=== PATIENT | female | born 1985 | race Caucasian/White ===

== ENCOUNTER 2017-12-02 12:06 | Inpatient (IN) | payer BC ==
[~2017-12-02] VITALS: Ht 165.1 cm; Wt 58.2 kg
[2017-12-02 13:42] VITALS: BP 114/77
[2017-12-02 13:43] VITALS: BP 114/77
[2017-12-02 14:11] LABS: BASO % 1 % (0-3); EOS # 0.1 x10^3/uL (0.0-0.7); EOS % 2 % (0-3); HEMATOCRIT 38.1 % (36.0-47.0); HEMOGLOBIN 12.8 g/dL (12.0-15.5); LYMPH # 1.2 x10^3/uL (1.0-4.8); LYMPH % 36 % (24-48); MEAN CORPUSCULAR HEMOGLOBIN 30 pg (25-35); MEAN CORPUSCULAR HGB CONC 34 g/dL (31-37); MEAN CORPUSCULAR VOLUME 89 fL (79-100); MONO # 0.5 x10^3/uL (0.0-1.1); MONO % 14 % (0-9); NEUT # 1.6 x10^3uL (1.8-7.7); NEUT % 47 % (31-73); PLATELET COUNT 248 x10^3/uL (140-400); RED BLOOD COUNT 4.29 x10^6/uL (3.50-5.40); RED CELL DISTRIBUTION WIDTH 12.8 % (11.5-14.5); WHITE BLOOD COUNT 3.4 x10^3/uL (4.0-11.0)
[2017-12-02] MEDS ORDERED: IOHEXOL 240 MG/ML 50ML VIAL. ONE (14:19)
[2017-12-02 14:29] LABS: ALBUMIN/GLOBULIN RATIO 0.7 (1.0-1.7); CALCIUM 9.1 mg/dL (8.5-10.1); CREATININE 0.7 mg/dL (0.6-1.0); GFR 96.4; POTASSIUM 3.3 mmol/L (3.5-5.1); TOTAL BILIRUBIN 0.3 mg/dL (0.2-1.0); TOTAL PROTEIN 7.1 g/dL (6.4-8.2)
[2017-12-02] MEDS ORDERED: BACL10TA PO (14:51)
[2017-12-02] MEDS ORDERED: TRAM50TA PO (14:51)
[2017-12-02] MEDS ORDERED: NAPR-695 PO (14:51)
[2017-12-02] MEDS ORDERED: GABA-586 PO (14:51)
[2017-12-02] MEDS ORDERED: IOHEXOL 300 MG/ML 75 ML VIAL. IV ONE (15:00)
[2017-12-02 15:15] LABS: SEDIMENTATION RATE 56 (0-25)
[2017-12-02] MEDS ORDERED: NAPROXEN 375 MG TABLET PO PRN (15:15)
[2017-12-02] MEDS: AA 3%/ELECTROLYTE-TPN SOLN/GLY 1,000 ML IV SCH (15:18)
[2017-12-02 16:01] VITALS: BP 112/72
--- NOTE | 2017-12-02 16:11 | RAD ---
CT abdomen and pelvis with contrast History: Diarrhea for 4 days, fever at night, diagnosed with colitis Technique: After the administration of oral and intravenous contrast, CT imaging was performed of the abdomen and pelvis. Multiplanar images are reviewed. Exposure: One or more of the following individualized dose reduction techniques were utilized for this examination: 1. Automated exposure control 2. Adjustment of the mA and/or kV according to patient size 3. Use of iterative reconstruction technique. Contrast: 75 cc Omnipaque 300 Comparison: None Findings: There is no significant abnormality of the visualized lung bases. There is no significant abnormality of the spleen, pancreas, adrenal glands. There is a focus of decreased density of the left lobe of the liver near the fissure of the ligamentum up to 3.2 cm longitudinal by 1.6 cm transverse by 1.3 cm AP. There is elongation right lobe of the liver. Both kidneys enhance without hydronephrosis. Gallbladder is present without obvious intraluminal abnormality by CT. Main portal vein and superior mesenteric vein are somewhat prominent in caliber, although appear adequately opacified with contrast. The colon is not opacified with oral contrast during the exam for accurate evaluation, also limited evaluation due to the paucity of intraabdominal and intrapelvic fat. There appears to be wall thickening of the descending colon and splenic flexure, as well as likely segments of more proximal transverse colon and ascending colon. Small bowel is not dilated. No free air is identified. There is a small quantity of nonspecific dependent free fluid in the pelvis. Clips in the right pelvis are likely due to previous appendectomy. The bladder has a normal configuration, mild distention. Impression: 1. Accurate evaluation of the colon is again limited without significant oral contrast opacification during exam, likely colonic wall thickening which may be seen with colitis. There is a small quantity of nonspecific free fluid in the pelvis. Small bowel is not significantly dilated. 2.There is a focus of decreased density of the left lobe of the liver near the fissure of the ligamentum teres in a common location for site of decreased perfusion or more focal fatty infiltration. Electronically signed by: Krish Argueta MD (12/02/2017 4:08 PM) [id number]
[2017-12-02] MEDS: GABAPENTIN 300 MG CAPSULE. PO SCH ×2 (16:31→19:52)
[2017-12-02] MEDS: BACLOFEN 10 MG TABLET PO SCH ×2 (16:31→19:52)
[2017-12-02] MEDS: traMADol 50 MG TABLET PO PRN ×2 (16:32→21:40)
[2017-12-02 19:31] VITALS: BP 111/74
[2017-12-02] MEDS: ONDANSETRON PF 4 MG/2 ML VIAL. IV PRN (19:50)
[2017-12-02] MEDS: MORPHINE SULFATE 4 MG/ML DISP.SYRIN. IV PRN ×2 (19:51→23:35)
[2017-12-02 21:25] LABS: BACTERIA,URINE 0 /HPF (0-FEW); BILIRUBIN,URINE NEG (NEG); CLARITY,URINE CLEAR; COLOR,URINE STRAW; GLUCOSE,URINE NEG (NEG); NITRITE,URINE NEG (NEG); RBC,URINE OCC /HPF (0-2); UROBILINOGEN,URINE 0.2 mg/dL (0.2 mg/dL); WBC,URINE 0 /HPF (0-4)
[2017-12-02 21:26] LABS: SQUAMOUS EPITHELIAL CELL,UR OCC /LPF
[2017-12-02 23:51] VITALS: BP_SYST 120; BP_SYST 152; BP_DIAS 74; BP_DIAS 85
[2017-12-03] MEDS: ONDANSETRON PF 4 MG/2 ML VIAL. IV PRN (03:26)
[2017-12-03] MEDS: MORPHINE SULFATE 4 MG/ML DISP.SYRIN. IV PRN ×2 (03:27→08:49)
[2017-12-03] MEDS: AA 3%/ELECTROLYTE-TPN SOLN/GLY 1,000 ML IV SCH ×2 (03:28→19:56)
[2017-12-03 05:02] VITALS: BP 116/66
[2017-12-03 08:01] LABS: BASO % 0 % (0-3); EOS # 0.1 x10^3/uL (0.0-0.7); EOS % 3 % (0-3); HEMATOCRIT 35.5 % (36.0-47.0); HEMOGLOBIN 11.9 g/dL (12.0-15.5); LYMPH # 1.2 x10^3/uL (1.0-4.8); LYMPH % 34 % (24-48); MEAN CORPUSCULAR HEMOGLOBIN 29 pg (25-35); MEAN CORPUSCULAR HGB CONC 34 g/dL (31-37); MEAN CORPUSCULAR VOLUME 88 fL (79-100); MONO # 0.6 x10^3/uL (0.0-1.1); MONO % 16 % (0-9); NEUT # 1.7 x10^3uL (1.8-7.7); NEUT % 47 % (31-73); PLATELET COUNT 239 x10^3/uL (140-400); RED BLOOD COUNT 4.06 x10^6/uL (3.50-5.40); WHITE BLOOD COUNT 3.7 x10^3/uL (4.0-11.0)
[2017-12-03 08:21] LABS: ALBUMIN 2.3 g/dL (3.4-5.0); ALBUMIN/GLOBULIN RATIO 0.6 (1.0-1.7); CALCIUM 8.4 mg/dL (8.5-10.1); CREATININE 0.5 mg/dL (0.6-1.0); GFR 142.1; MAGNESIUM 1.9 mg/dL (1.8-2.4); POTASSIUM 3.8 mmol/L (3.5-5.1); TOTAL BILIRUBIN 0.2 mg/dL (0.2-1.0); TOTAL PROTEIN 6.2 g/dL (6.4-8.2)
[2017-12-03] MEDS: GABAPENTIN 300 MG CAPSULE. PO SCH ×3 (08:49→19:55)
[2017-12-03] MEDS: BACLOFEN 10 MG TABLET PO SCH ×3 (08:49→19:55)
[2017-12-03 11:44] VITALS: BP 112/69
[2017-12-03] MEDS: HYDROmorphone PF 2 MG/ML VIAL IV PRN ×3 (12:03→21:36)
[2017-12-03] MEDS: fentaNYL 12MCG/HR 1 PATCH PATCH TD SCH (14:25)
[2017-12-03 15:48] VITALS: BP 115/70
[2017-12-03 19:54] VITALS: BP 117/73
[2017-12-03] MEDS: MELATONIN 3 MG TABLET PO PRN (19:56)
[2017-12-03 22:54] VITALS: BP 106/59
--- NOTE | 2017-12-04 00:09 | PN ---
DATE: SUBJECTIVE: The patient diagnosed with lymphocytic microcytic colitis, having frequent bowel movements. CT scan demonstrates a nonspecific free fluid in the pelvis as well as colonic wall thickening per CT scan, previous diagnosis by Dr. Avilez with colonoscopy showing the lymphocytic colitis. The patient says she is doing a little better, better hydrated of course. Continue to monitor carefully. Still needs good support. Albumin down to 2.3. Have the performance instructor review the patient. OBJECTIVE: VITAL SIGNS: Blood pressure 112/70, respiratory rate 20, pulse 64, afebrile. HEENT: The patient's head was atraumatic, normocephalic. Eyes: PERRLA without jaundice. Mouth and throat were normal. NECK: Supple. LUNGS: Diminished, but clear. CARDIOVASCULAR: Regular sinus rhythm. ABDOMEN: Soft, diffuse tenderness throughout, positive bowel sounds. No hepatosplenomegaly. EXTREMITIES: No clubbing, cyanosis or edema. NEUROLOGIC: Intact. IMPRESSION: Lymphocytic microcytic colitis with dehydration, moderate to severe protein malnutrition. PLAN: Continue with IV, was started on budesonide fluids and make further assessment. ____ Dr. Avilez to make further evaluation on him as indicated. CHICHI GUNN MD DR: SONNY/maroc JOB#: [id number] / [id number]
[2017-12-04] MEDS: HYDROmorphone PF 2 MG/ML VIAL IV PRN ×5 (02:36→20:29)
[2017-12-04 02:39] VITALS: BP 101/62
[2017-12-04 05:55] VITALS: BP 105/70
[2017-12-04] MEDS: AA 3%/ELECTROLYTE-TPN SOLN/GLY 1,000 ML IV SCH ×2 (08:50→20:27)
[2017-12-04] MEDS: GABAPENTIN 300 MG CAPSULE. PO SCH ×3 (08:53→20:27)
[2017-12-04] MEDS: BACLOFEN 10 MG TABLET PO SCH ×3 (08:53→20:27)
[2017-12-04] MEDS: BUDESONIDE 3 MG CAP.ER.24H. PO SCH (10:09)
[2017-12-04 12:34] VITALS: BP 107/64
[2017-12-04 15:59] VITALS: BP 108/68
[2017-12-04 17:09] LABS: ANA INTERP Negative (.)
[2017-12-04 20:19] VITALS: BP 130/81
[2017-12-04] MEDS: MELATONIN 3 MG TABLET PO PRN (20:27)
--- NOTE | 2017-12-05 00:03 | PN ---
DATE: 12/04/2017 SUBJECTIVE: A 32-year-old female in with microcytic lymphocytic colitis, dehydration and severe protein malnutrition, doing a little bit better. Diarrhea has pretty much slowed down. We will have to go ahead and continue with therapy, budesonide and make further evaluation on her. Her hemoglobin has dropped to the ____. Sed rate was elevated at 35, B12 levels were good. Her prealbumin level was extremely low at 9.1, which shows the degree of malnutrition therapy. Her ____ in for further evaluation for a dietary consult and make further evaluation on her. OBJECTIVE: VITAL SIGNS: Otherwise, blood pressure 110/70, respiratory rate 18, pulse down to 60, afebrile. LUNGS: The patient's lungs clear. CARDIOVASCULAR: Stable. ABDOMEN: Soft, diffuse tenderness, but markedly improved, at least diarrhea has stopped. IMPRESSION: Microcytic lymphocytic colitis, severe protein malnutrition and dehydration. CHICHI GUNN MD DR: SONNY/marco JOB#: [id number] / [id number]
[2017-12-05] MEDS: HYDROmorphone PF 2 MG/ML VIAL IV PRN ×3 (00:45→19:41)
[2017-12-05] MEDS: AA 3%/ELECTROLYTE-TPN SOLN/GLY 1,000 ML IV SCH ×2 (04:30→17:29)
[2017-12-05 05:14] VITALS: BP 120/76
[2017-12-05 07:07] LABS: BASO % 0 % (0-3); EOS # 0.1 x10^3/uL (0.0-0.7); EOS % 2 % (0-3); HEMATOCRIT 36.1 % (36.0-47.0); HEMOGLOBIN 12.3 g/dL (12.0-15.5); LYMPH # 1.8 x10^3/uL (1.0-4.8); LYMPH % 37 % (24-48); MEAN CORPUSCULAR HEMOGLOBIN 30 pg (25-35); MEAN CORPUSCULAR HGB CONC 34 g/dL (31-37); MEAN CORPUSCULAR VOLUME 88 fL (79-100); MONO # 0.5 x10^3/uL (0.0-1.1); MONO % 10 % (0-9); NEUT # 2.4 x10^3uL (1.8-7.7); NEUT % 50 % (31-73); PLATELET COUNT 269 x10^3/uL (140-400); RED BLOOD COUNT 4.12 x10^6/uL (3.50-5.40); RED CELL DISTRIBUTION WIDTH 12.8 % (11.5-14.5); WHITE BLOOD COUNT 4.8 x10^3/uL (4.0-11.0)
[2017-12-05 07:21] LABS: ALBUMIN 2.5 g/dL (3.4-5.0); ALBUMIN/GLOBULIN RATIO 0.7 (1.0-1.7); CALCIUM 8.6 mg/dL (8.5-10.1); CREATININE 0.6 mg/dL (0.6-1.0); GFR 115.1; POTASSIUM 4.3 mmol/L (3.5-5.1); TOTAL BILIRUBIN 0.1 mg/dL (0.2-1.0); TOTAL PROTEIN 6.3 g/dL (6.4-8.2)
[2017-12-05] MEDS: traMADol 50 MG TABLET PO PRN (08:49)
[2017-12-05] MEDS: BACLOFEN 10 MG TABLET PO SCH ×3 (08:49→19:41)
[2017-12-05] MEDS: BUDESONIDE 3 MG CAP.ER.24H. PO SCH (08:49)
[2017-12-05 08:50] LABS: % BANDS 6 % (0-9); % EOS 3 % (0-5); % LYMPHS 44 % (24-48); % MONOS 5 % (0-10); % SEGS 42 % (35-66); NUCLEATED RBC 1; PLT ESTIMATE ADEQUATE (ADEQUATE)
[2017-12-05] MEDS: GABAPENTIN 300 MG CAPSULE. PO SCH ×3 (08:50→19:41)
[2017-12-05] MEDS: MORPHINE SULFATE 4 MG/ML DISP.SYRIN. IV PRN ×3 (09:02→17:05)
[2017-12-05] MEDS: LIPASE/PROTEAS/AMYLASE 5/17/27 CAPSULE.DR. PO SCH ×2 (13:14→17:04)
[2017-12-05] MEDS: DICYCLOMINE HCL 10 MG CAPSULE PO SCH ×2 (13:16→19:41)
[2017-12-05 13:43] VITALS: BP 107/65
[2017-12-05 15:34] VITALS: BP 98/56
[2017-12-05 19:35] VITALS: BP 105/62
[2017-12-05] MEDS: MELATONIN 3 MG TABLET PO PRN (22:00)
[2017-12-05 23:54] VITALS: BP 125/81
[2017-12-06] MEDS: HYDROmorphone PF 2 MG/ML VIAL IV PRN (00:05)
[2017-12-06] MEDS: MORPHINE SULFATE 4 MG/ML DISP.SYRIN. IV PRN (04:56)
[2017-12-06] MEDS: AA 3%/ELECTROLYTE-TPN SOLN/GLY 1,000 ML IV SCH (04:56)
[2017-12-06 06:33] VITALS: BP 107/63
--- NOTE | 2017-12-06 07:54 | PN ---
DATE: 12/05/2017 SUBJECTIVE: A 32-year-old female is still having quite a bit of pain from her microcytic lymphocytic colitis. The patient is resting fairly comfortably, but still requiring pain medication, still not eating much, had some crackers, so we slowly got her on the IV procalamine. The patient's albumin has just come up just slightly from 2.3 to 2.5. She is deficient in vitamin D as well. She looks a little stronger. She is making some progress. She says she feels a little better. We started her on budesonide, took her off the naproxen. PHYSICAL EXAMINATION: VITAL SIGNS: Blood pressure 120/76, respiratory rate is 20, pulse 60, afebrile. LUNGS: Clear. CARDIOVASCULAR: Stable. ABDOMEN: Soft, diffuse tenderness throughout, but no rebounding or guarding. Positive bowel sounds. Stools are diminished, but still very loose. PLAN: We will continue to monitor her accordingly and add some Bentyl, vitamin D along with the procalamine, some probiotics and some digestive enzymes to help increase and she is taking Boost for nutritional supplement and dietetics is reviewed with the patient. CHICHI GUNN MD DR: SONNY/marco JOB#: [id number] / [id number]
[2017-12-06] MEDS: BACLOFEN 10 MG TABLET PO SCH (08:19)
[2017-12-06] MEDS: GABAPENTIN 300 MG CAPSULE. PO SCH (08:19)
[2017-12-06] MEDS: DICYCLOMINE HCL 10 MG CAPSULE PO SCH (08:19)
[2017-12-06] MEDS: BUDESONIDE 3 MG CAP.ER.24H. PO SCH (08:19)
[2017-12-06] MEDS: LIPASE/PROTEAS/AMYLASE 5/17/27 CAPSULE.DR. PO SCH ×2 (08:19→11:51)
[2017-12-06] MEDS: fentaNYL 12MCG/HR 1 PATCH PATCH TD SCH (08:25)
[2017-12-06] MEDS ORDERED: CHOLECALCIFEROL (VITAMIN D3) 1,000 UNIT TABLET PO SCH (09:00)
[2017-12-06] MEDS ORDERED: LACTOBACILLUS RHAMNOSUS GG 1 CAPSULE. PO SCH (09:00)
[2017-12-06] MEDS ORDERED: CHOL10002 PO (11:13)
[2017-12-06] MEDS ORDERED: FENT-73 TD (11:13)
[2017-12-06] MEDS ORDERED: LIPA1CAP11 PO (11:13)
[2017-12-06] MEDS ORDERED: BUDE3CAP2 PO (11:13)
[2017-12-06] MEDS ORDERED: DICY10AM IM (11:40)
[2017-12-06 11:42] VITALS: BP 105/62
--- NOTE | 2017-12-06 12:56 | PN ---
DATE: 12/05/2017 SUBJECTIVE: A 32-year-old female ____ with lymphocytic microcytic colitis. Says she is doing a little bit better. She is advancing her diet as well as having less diarrhea; however, she is still having quite a bit of pain and still having problems with eating. Still on the budesonide and we will continue to monitor the patient, accordingly make further evaluation on her as indicated per those results there. Otherwise added some vitamin D, digestive enzymes, probiotics, Bentyl and see if it does not help her. Her abdomen is soft, diffuse tenderness. IMPRESSION: Colitis, kovaurgq-[id number] protein malnutrition. CHICHI GUNN MD DR: SONNY/marco JOB#: [id number] / [id number]
--- NOTE | 2017-12-06 19:44 | DS ---
DATE OF DISCHARGE: 12/06/2017 HOSPITAL COURSE: A 32-year-old female in with lymphocytic microcytic colitis. The patient is resting fairly comfortably, making fairly good progress overall. Has not had a BM here last day or so, able to eat and drink, so will be discharged home. Gave lengthy discussion on her problem, staying away from nonsteroidal medications, no prednisone. PHYSICAL EXAMINATION: VITAL SIGNS: Blood pressure 105/62, respiratory 18, pulse 60, afebrile. LUNGS: Clear. CARDIOVASCULAR: Stable. ABDOMEN: Soft, diffuse tenderness, no rebound or guarding. ASSESSMENT AND PLAN: The patient will be discharged home. See MRAD. Decreased activity and we will get her a work release for the coming week to go back on . Otherwise, the patient's impression is microcytic lymphocytic colitis, tyzolegc-[id number] protein malnutrition, abdominal pain, vitamin D deficiency. Continue to follow up with Dr. Avilez, her GI doctor, as an outpatient to make further evaluation on her as indicated. CHICHI GUNN MD DR: SONNY/marco JOB#: [id number] / [id number]
== END 2017-12-06 13:13 | disposition home or self-care (01) | DRG 391 ==
LOC: 1 SOUTH 13:19
PROVIDERS: ADMIT Family Medicine; ATTEND Family Medicine
DX: K52.832 Lymphocytic colitis (principal); E43 Unspecified severe protein-calorie malnutrition; E86.0 Dehydration; F17.210 Nicotine dependence, cigarettes, uncomplicated; R62.7 Adult failure to thrive; E55.9 Vitamin D deficiency, unspecified; Z90.49 Acquired absence of other specified parts of digestive tract; Z98.51 Tubal ligation status; Z79.899 Other long term (current) drug therapy; Z68.21 Body mass index [BMI] 21.0-21.9, adult
CPT/HCPCS: 36415; 74177; 80053; 81001; 82306; 82607; 83605; 83735; 84134; 84702; 85007; 85025; 85651; 86038; 87045; J1170; J2270; J2405; J3490; Q9967; 97110; 97530

== ENCOUNTER → 2018-08-06 | Outpatient (CLI) | payer BC ==
[~2018-08-06] MED LIST: BACL10TA PO; BUDE3CAP2 PO; CHOL10002 PO; DICY10AM IM; FENT-73 TD; GABA-586 PO; IOHEXOL 300 MG/ML 75 ML VIAL. IV ONE; LIPA1CAP11 PO; NAPR-695 PO; TRAM50TA PO
--- NOTE | 2018-08-06 14:38 | RAD ---
CTA of the chest without comparison for outpouching of the aorta with chest pain for 2 months. Technique: Contiguous helical 1.5 mm axial images are obtained from the thoracic inlet to the base of the diaphragm following administration of IV contrast in the systemic arterial phase. Sagittal and coronal MIP reformations and 3-D volume rendered vascular images are evaluated. FINDINGS: Heart size is within normal limits. No suspicious mediastinal, hilar, or axillary lymphadenopathy is seen. No abnormality of the ascending or descending thoracic aorta, or aortic arch is evident. Great vessels are grossly unremarkable. There is no pneumothorax, pleural effusion, or congestive heart failure. No focal pneumonic infiltrates are identified. No significant soft tissue or osseous abnormalities are seen. Visualized upper abdominal organs are grossly unremarkable, though evaluation is somewhat limited by the arterial phase of contrast. No evidence of pulmonary arterial embolism. No evidence of lung nodule or mass. IMPRESSION: 1. Normal CTA of the chest with no evident abnormality of the thoracic aorta or great vessels. Electronically signed by: Reji England MD (08/06/2018 2:35 PM) [id number]
== END | disposition home or self-care (01) ==
LOC: CT 08:50
PROVIDERS: ATTEND Nurse Practitioner Family
DX: Z03.89 Encounter for observation for other suspected diseases and conditions ruled out (principal); G89.4 Chronic pain syndrome; F41.1 Generalized anxiety disorder; M79.7 Fibromyalgia; I10 Essential (primary) hypertension; F17.200 Nicotine dependence, unspecified, uncomplicated; Z90.89 Acquired absence of other organs; Z82.49 Family history of ischemic heart disease and other diseases of the circulatory system; Z88.1 Allergy status to other antibiotic agents
CPT/HCPCS: 71275; Q9967

== ENCOUNTER 2020-04-06 02:44 | Emergency (ER) | payer BC ==
[~2020-04-06] VITALS: Ht 165.1 cm; Wt 63.0 kg
[2020-04-06 02:44] VITALS: BP 124/94
[~2020-04-06 02:44] MED LIST changes: -IOHEXOL 300 MG/ML 75 ML VIAL. IV ONE
[2020-04-06] MEDS ORDERED: HYDR-3165 PO (03:21)
--- NOTE | 2020-04-06 03:22 | PHYS DOC ---
General Adult EDM: Chief Complaint: WRIST PAIN HPI: HPI: 34-year-old female presents with left wrist pain. The patient was horsing around with her son and his friend when she got bumped and fell to the ground. She fell with outstretched hand. There was some pain but she thought it would get better. She went to sleep for a couple hours and then woke up with significant pain and swelling in the left wrist. She decided she needed to have it evaluated. When plainly asked if someone hurt her or if she felt like she was in danger she denies both. This was just an accident. The patient had been drinking some alcohol. She denies any other injuries. Review of Systems: Review of Systems: Constitutional: Denies fever or chills Eyes: Denies change in visual acuity HENT: Denies nasal congestion or sore throat Respiratory: Denies cough or shortness of breath Cardiovascular: Denies chest pain or edema GI: Denies abdominal pain, nausea, vomiting, bloody stools or diarrhea : Denies dysuria Musculoskeletal: Left wrist pain Integument: Denies rash Neurologic: Denies headache, focal weakness or sensory changes Endocrine: Denies polyuria or polydipsia Lymphatic: Denies swollen glands Psychiatric: Denies depression or anxiety Heart Score: Risk Factors: Risk Factors: DM, Current or recent (<one month) smoker, HTN, HLP, family history of CAD, obesity. Risk Scores: Score 0 - 3: 2.5% MACE over next 6 weeks - Discharge Home Score 4 - 6: 20.3% MACE over next 6 weeks - Admit for Clinical Observation Score 7 - 10: 72.7% MACE over next 6 weeks - Early Invasive Strategies Allergies: Allergies: Allergies Coded Allergies Type Severity Reaction Last Updated Verified amoxicillin Allergy Intermediate 12/03/17 Yes Physical Exam: PE: Constitutional: Well developed, well nourished, no acute distress, non-toxic appearance. [] HENT: Normocephalic, atraumatic, bilateral external ears normal, oropharynx moist, no oral exudates, nose normal. [] Eyes: PERRLA, EOMI, conjunctiva normal, no discharge. [] Neck: Normal range of motion, no tenderness, supple, no stridor. [] Cardiovascular:Heart rate regular rhythm, no murmur [] Lungs & Thorax: Bilateral breath sounds clear to auscultation [] Abdomen: Bowel sounds normal, soft, no tenderness, no masses, no pulsatile masses. [] Skin: Warm, dry, no erythema, no rash. [] Back: No tenderness, no CVA tenderness. [] Extremities: Tenderness of the radial side of the left wrist, swelling, no obvious deformity [] Neurologic: Alert and oriented X 3, normal motor function, normal sensory function, no focal deficits noted. [] Psychologic: Affect normal, judgement normal, mood normal. [] EKG: EKG: [] Radiology/Procedures: Radiology/Procedures: [] Course & Med Decision Making: Course & Med Decision Making Pertinent Labs and Imaging studies reviewed. (See chart for details) [] Dragon Disclaimer: Dragon Disclaimer: This electronic medical record was generated, in whole or in part, using a voice recognition dictation system. Departure Departure: Impression: Primary Impression: Fracture of left distal radius Qualified Codes: S52.502A - Unspecified fracture of the lower end of left radius, initial encounter for closed fracture Disposition: 01 HOME/RESIDENCE PRIOR TO ADM Condition: STABLE Referrals: [facility] (PCP) Patient Instructions: Radius Fracture with Rehab-[facility] Scripts Hydrocodone Bit/Acetaminophen (NORCO 5-325 TABLET) 1 Each Tablet 1 TAB PO PRN Q6HRS PRN for PAIN, #10 TAB 0 Refills Prov: TRACEY SHELBY DO 04/06/20 Justification of Admission: Justification of Admission: Justification of Admission Dx: N/A TRACEY SHELBY DO Apr 06, 2020 03:21
[2020-04-06] MEDS ORDERED: HYDROcodone/APAP 5/325MG 1 TAB TABLET PO ONE (03:30)
--- NOTE | 2020-04-06 04:09 | RAD ---
EXAM: WRIST 3V LEFT. HISTORY: Fall, left wrist pain. COMPARISON: None. FINDINGS: There is a nondisplaced transverse fracture of the distal radius. There is minimal dorsal inclination of the distal radioarticular surface. Intra-articular extension is suspected dorsally along the scapholunate interval. Radiocarpal and intercarpal joint spaces and alignment are maintained. Soft tissue swelling is noted. IMPRESSION: 1. Minimally dorsally angulated intra-articular fracture of the distal radius. Electronically signed by: Jhonatan Snow MD (04/06/2020 4:06 AM) [facility]
== END 2020-04-06 03:45 | disposition home or self-care (01) ==
LOC: ER 02:44
DX: S52.502A Unspecified fracture of the lower end of left radius, initial encounter for closed fracture (principal); W18.39XA Other fall on same level, initial encounter; Y93.89 Activity, other specified; Y92.89 Other specified places as the place of occurrence of the external cause; Y99.8 Other external cause status
CPT/HCPCS: 29125; 73110; 99283

== ENCOUNTER → 2020-04-11 | Outpatient (CLI) | payer BC ==
[2020-04-06 02:44] VITALS: BP 124/94
[~2020-04-11] MED LIST changes: +HYDR-3165 PO
--- NOTE | 2020-04-11 15:47 | RAD ---
PROCEDURE: WRIST 3V LEFT STUDY DATE: 04/11/2020 CLINICAL INDICATION / HISTORY: Reason: WRIST INJURY, PAIN / Spl. Instructions: / History: . TECHNIQUE: 3 views left wrist including lateral, oblique and PA views COMPARISON: Left wrist x-rays of 04/06/2020 FINDINGS: Coronally oriented intra-articular fracture of the left distal radial epiphysis remains visible with mild impaction. There has been little change in alignment and no significant callus formation is identified to indicate significant interval healing. There remains diffuse soft tissue swelling around the left wrist. No abnormal soft tissue gas or permeative osteolysis. The rest of the bones are unremarkable. IMPRESSION: Similar appearance to intra-articular mildly impacted left distal radial fracture with little radiographic evidence of interval healing. Electronically signed by: Isac Cole MD (04/11/2020 3:44 PM) [id number]
== END | disposition home or self-care (01) ==
LOC: DXRAD 13:37
PROVIDERS: ATTEND Physician Assistant
DX: S52.572A Other intraarticular fracture of lower end of left radius, initial encounter for closed fracture (principal); M79.89 Other specified soft tissue disorders; X58.XXXA Exposure to other specified factors, initial encounter; Y93.89 Activity, other specified; Y92.89 Other specified places as the place of occurrence of the external cause; Y99.8 Other external cause status
CPT/HCPCS: 73110